=== PATIENT | male | born 1975 ===

== ENCOUNTER 2023-02-07 03:56 | Day surgery (SDC) | payer OTHER ==
[2023-02-02 11:28] VITALS: BMI 27.6
[2023-02-07] MEDS ORDERED: MIDAZOLAM HCL 2 MG/2 ML SINGLE DOSE VIAL ONE (16:55)
[2023-02-07 17:54] VITALS: PULSE 56
[2023-02-07 19:31] VITALS: BP 145/82; RESP 16; TEMP 98.2
== END 2023-02-07 19:25 | disposition home or self-care (01) ==
LOC: JASU-SURG 03:56
PROVIDERS: ATTEND Urology
PROC: 0TF3XZZ Fragmentation in Right Kidney Pelvis, External Approach (ICD-10-PCS; principal; 2023-02-07 15:30)
DX: N20.0 Calculus of kidney (principal)
CPT/HCPCS: 82962